=== PATIENT | male | born 1995 | race Caucasian/White ===

== ENCOUNTER → 2016-07-26 | Outpatient (CLI) | payer OTHER ==
--- NOTE | 2016-08-01 09:57 | CDE ---
ADMIT: 07/26/2016 RM/LOC: [facility] MR#: [id number] [id number] [place], [place] [id number] [address] SYED [address] [place] [address] Chemical Dependency Evaluation SEX: M AGE: 21 : 1995 A. DEMOGRAPHICS: NAME: Liang Syed DATE OF : 1995 EVALUATING COUNSELOR: Dk Lucas MS, LMHP, LADC, CSAT DATE OF EVALUATION: 07/26/2016 B. PRESENTING PROBLEM/CHIEF COMPLAINT: This client was referred here for this substance abuse evaluation by probation. His chief financial officer, Jaxon Ponce, referred him here after he had a dirty UA while he was on probation. He is on probation for attempted burglary. C. MEDICAL HISTORY: This client denied having any medical issues at this time. D. WORK/SCHOOL/ HISTORY: SCHOOL: This client received his high school diploma in [address] [employer] by [employer]. He would like to get an associates degree but did not say what it was in. WORK: This client has worked for [employer] for 8 years. 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 He does work there. He denied having any other jobs. : This client was in the [employer]. He received the rank of E2. He got a general discharge when he received his arrest for attempted burglary. E. ALCOHOL/DRUG ASSESSMENT SUMMARY: ALCOHOL: This client first drank alcohol at age 16. He said it was not very often, maybe once a month, he would have one or two beers. His last use of alcohol was 04/07/2016. MARIJUANA: This client first smoked marijuana at age 17. He said not very often and then changed it to a few times a month. He claims his last use of marijuana was 05/09/2016; however, reports from his chief financial officer indicated that his levels are not dropping. They are still waiting on one more test, but so far they have not, and had to have been using prior to that. His chief financial officer also stated that this client admitted to using marijuana for 2 years on a daily basis. COCAINE: No use reported. AMPHETAMINES: No use reported. HALLUCINOGENS: No use reported. HEROIN: No use reported. PRESCRIPTION DRUGS: No abuse reported. OTHER DRUGS (INHALANTS, OVER THE COUNTER, ETC): No abuse reported. NICOTINE: No use reported. ADMIT: 07/26/2016 RM/LOC: [facility] MR#: [id number] [address] [place] [phone] [address] SY[address],[place] [id number] Chemical Dependency Evaluation SEX: M AGE: 21 : 1995 Client denied that he has had any negative effects of his drug or alcohol use. However, on probation, he has ran into issues with his marijuana use. F. LEGAL HISTORY: This client stated that he had the attempted burglary charge, received 2 years probation, but he denied that he did anything wrong. G. FAMILY/SOCIAL/PEER HISTORY: This client was, he said, raised by his biological parents in [place], [place]. He described his family upbringing as good. He said his parents did separate in 2009. He was not sure why, but he denied that has had any effect on him. He said he gets along good with his mom and his dad. This client stated he has never been , he has no kids, and he is not in a relationship at this time. He denied having any serious family problems affecting his life. SEXUAL HISTORY AND TRAUMA: This client stated that he is heterosexual and he is comfortable with that orientation. He denied ever being the victim of sexual or physical abuse and he denied inflicting any aggressive sexual or physical abuse on others. SOCIAL RELATIONSHIPS: This client prefers to hang around with people who do not use or drink. The majority of his friends do not. He denied that his use has affected any of his friendships. He tends to spend time with people close to his age and he spends more time with people than by himself. RECREATIONAL AND LEISURE ACTIVITIES: This client enjoys working out. He denied ever using while doing that activity. SPIRITUAL: This client does believe in God or a higher power and finds purpose and meaning in his life through his family. He does not belong to any particular lutheran. H. PSYCHIATRIC/BEHAVIORAL HISTORY: This client stated that he has never thought of suicide and has never attempted it, and he also said there is no family history of suicide and that he has not had any in or outpatient treatment for mental health or behavioral problems. I. COLLATERAL INFORMATION: This client's mom was talked to. She said she sees no issues with her son, thinks that he is doing well. This client's chief financial officer was also talked to. Jaxon Ponce said that he had a dirty UA for marijuana and it does not seem to be dropping very much, and he thinks he could still be using. He said this ADMIT: 07/26/2016 RM/LOC: [facility] MR#: [id number] [facility] [address] [phone] [address],[place] [address] Chemical Dependency Evaluation SEX: M AGE: 21 : 1995 client also admitted to smoking pot on a daily basis for 2 years prior to his arrest. THE DRINKER TYPE RATING: Is a measure of how the client perceives their own drinking and/or using. This rating is indicative of how resistant or accepting the person is to the drinking problem. The client chose their rating from the following classifications: ALCOHOL Total Abstainer Light Social (non-problem) Drinker Moderate Social (non-problem) Drinker User Heavy Social (non-problem)Drinker Problem Drinker Alcoholic OTHER DRUG Nonuser Light Social (non-problem) User Moderate Social (non-problem) User Heavy Social (non-problem) User Problem User Addicted/Dependent This client listed himself as a total abstainer of alcohol and a nonuser of other drugs in his whole life, he would not rate it. He listed his strengths as he is a leader, he is kind, and he is a good person. He listed his weakness as he is too forgiving of people. SUBSTANCE ABUSE SUBTLE SCREENING INVENTORY (SASSI): The SASSI is an assessment tool specifically designed to provide a clearer picture of what lies beneath the facade presented by most patients or clients. Scores on this assessment aid in distinguishing nonabusers from abusers, alcoholics from drug abusers and nondefensive clients from defensive ones. The incorporation of a "denial scale" further enhances the ability to make an accurate recommendation. This client's SASSI scores according to the decision rule indicate that he has a low probability of having a substance dependence disorder and his scores are as follows: Face Valid Alcohol (FVA): 1. Face Valid Other Drugs (FVOD): 1. Symptoms (SYM): 0. ADMIT: 07/26/2016 RM/LOC: [facility] MR#: [id number] [address] [place] [id number] [address],[place] [address] Chemical Dependency Evaluation SEX: M AGE: 21 : 1995 Obvious Attributes (OAT): 3. Subtle Attributes (SAT): 4. Defensiveness (DEF): 7. Supplemental Addiction Measure (BART): 6. Family versus Controls (FAM): 7. Correctional (COR): 4. Random Answering Pattern (RAP): 0. Again, these scores indicate that he has a low probability of having a substance dependence disorder. We administered the ASI. Please see attached summary sheet. K. CLINICAL IMPRESSION: [place] I: F12.20, cannabis use disorder, severe. [place] II: V71.09, no diagnosis. [place] III: 799.9, deferred. [place] IV: Primary support group, social environment, legal system problems. [place] V: Global assessment of functioning 45. This client appeared to be minimizing his use as he talked, and before he finished the evaluation process he admitted to using a little more than what he had said. When his chief financial officer was talked to, he had minimized a lot. L. RECOMMENDATIONS PRESENTED TO CLIENT: This client was told that he would be referred to outpatient counseling and also keep attending NA meetings or AA meetings. CLIENT/FAMILY RESPONSE: This client stated that he does not have enough time to do that and he did not want to. [facility] CLINICAL ASSESSMENT CRITERIA: Low/Medium/High Dimension 1 = Intoxication and Withdrawal (i.e. history of withdrawal, level of current use): Low. Dimension 2 = Medical (i.e. , diabetes, medications, chronic conditions): Low. Dimension 3 = Emotional/Behavior Conditions (i.e. psych history, impulsivity, depression, anxiety, trauma history): Low. Dimension 4 = Treatment Acceptance/Resistance (i.e. past history, minimization/blame, acknowledgement of problem, pressure ADMIT: 07/26/2016 RM/LOC: [facility] MR#: [id number] [address] [phone] LIANG SYED,[address] [address] Chemical Dependency Evaluation SEX: M AGE: 21 : 1995 to seek treatment, does not feel they have a problem): Low. Dimension 5 = Relapse Potential (i.e. inability to abstain, use despite consequences, significant preoccupation, relapse despite outpatient treatment attempts): High. Dimension 6 = Recovery/Living Environment (i.e. current users reside in environment, family attitude, lack of consistent adult support in living environment, high exposure to using in social/work environment): Medium. CRIMINOGENIC RISK FACTORS: Low/Moderate/High Antisocial Attitudes: Low. Antisocial Peers: Low. Self Control Skills: Low. Family Dysfunction: Low. Past Criminality: Medium. Thank you for the opportunity to work with this client. Dk Lucas MS,KAM,TORIN, NIKKY/ modl JOB #: [id number] CC:
== END | disposition home or self-care (01) ==
LOC: ADTC.GI 09:07
DX: F12.20 Cannabis dependence, uncomplicated (principal)